=== PATIENT | male | born 1980 | race Caucasian/White ===

== ENCOUNTER → 2020-09-04 | Outpatient (CLI) | payer OTHER ==
[~2020-09-04] MED LIST: BACTRIM DS TAB1 EACH PO; CHANTIX1 MG PO; KEFLEX CAP 500500 MG PO; KEFLEX500 MG PO; NAPROSYN500 MG PO; PREDNISONE 20 M20 MG GT; PREDNISONE20 MG PO
== END ==
LOC: KOH-I 11:09
DX: R06.02 Shortness of breath (principal)
CPT/HCPCS: 71046